=== PATIENT | female | born 1975 | race Caucasian/White ===

== ENCOUNTER 2020-03-20 09:22 | Day surgery (SDC) | payer OTHER ==
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
[2020-03-20] MEDS ORDERED: Levofloxacin 500MG/100ML D5W IV ONE (09:23)
[2020-03-20] MEDS ORDERED: Lactated Ringers 1,000 ML IV ONE (09:42)
[2020-03-20] MEDS ORDERED: Lactated Ringers 1,000 ML IV SCH (10:00)
[2020-03-20] MEDS ORDERED: Xylocaine-Mpf 2% 5 Ml Vial ONE (11:31)
[2020-03-20] MEDS ORDERED: SUBLIMAZE 100 MCG/2 ML ONE (11:31)
[2020-03-20] MEDS ORDERED: DIPRIVAN 200 MG/20 ML IV ONE (11:31)
[2020-03-20] MEDS ORDERED: Quelicin Fliptop 200 MG/10 ML ONE (11:31)
[2020-03-20] MEDS ORDERED: Versed 2 MG/2 ML Injection ONE (11:31)
[2020-03-20] MEDS ORDERED: BRIDION 200MG/2ML IV ONE (12:04)
--- NOTE | 2020-03-20 12:38 | XRAY ---
Indication: Post-bronchoscopy. Comparison: None Portable chest inflated and clear. Heart and mediastinal structures within normal limits. Bony thorax intact. Impression: Nonacute chest.
[2020-03-20 13:36] VITALS: O2SAT 98
[2020-03-20 13:41] VITALS: BP 132/76; PULSE 79
--- NOTE | 2020-03-21 10:36 | XRAY ---
Indication: Bronchoscopy. Intraoperative fluoroscopy was provided for 5 seconds. 2 digital spot images submitted for interpretation and demonstrates bronchoscopy tip in the right middle and right lower lobe bronchi. Correlate with intraoperative findings and report.
--- NOTE | 2020-03-22 14:55 | OP ---
SURGERY DATE/TIME: 03/20/2020 1134 NOTE: This was dictated on the day of the procedure when I dictated all my other operative notes, the other five or six procedures that day. Apparently for some reason activity coordinator said this report was blank so this is a redictation. PREOPERATIVE DIAGNOSIS: Enlarged hilar mass or adenopathy, family history of lung cancer, need for flexible bronchoscopy for further evaluation. POSTOPERATIVE DIAGNOSIS: Fairly normal appearing mucosa trachea, left and right main stem and segmental bronchi. PROCEDURES: 1) Flexible bronchoscopy with left lung bronchial brushings. 2) Left lung bronchial washings. 3) Right lower lobe bronchial brushings. 4) Right lower lobe bronchial washings. 5) Right upper and middle lobe bronchial brushings. 6) Right upper and middle lobe bronchial washings. 7) Procedure with C-arm fluoroscopy confirming location of right lung segment that is in question on CT scan. SURGEON: Dr. Hamzah Sharpe. ANESTHESIA: General. ESTIMATED BLOOD LOSS: Minimal. INDICATIONS: As noted above. Risks and benefits explained in detail and not limited to and consent obtained. DESCRIPTION OF PROCEDURE AND FINDINGS: The patient is taken to the operating room. General anesthesia induced. After official time out and no disagreement with planned procedure, video flexible bronchoscope easily passed down. The trachea is grossly unremarkable. First going down the left lung stem bronchi unremarkable as well as segmental upper lobe lingular segments in lower lobe. Brushings and washings were done and passed off. There were no gross visible mucosal abnormalities. No gross extrinsic compression noted. Scope pulled back up to the hiram and then passed down the right lower lobe confirmed with C-arm fluoroscopy with bronchial brushings. Again, no obvious gross mucosal lesions or extraluminal compression noted. Fairly unremarkable bronchial brushings were taken given her issues of adenopathy or mass noted on the CT scan. Bronchial brushings were taken in the right lower lobe followed by washings and passed off for cytology and culture. The scope then redirected up and identified the right middle lobe and upper lobe segments with C-arm fluoroscopy. Again, bronchial brushings and washings were repeated and sent. There was no evidence of any visible extraluminal compression or endoluminal lesions noted. Good hemostasis noted. The patient had a little bit of coughing during the procedure but otherwise tolerated the procedure fairly well. Please see the anesthesia notes for details. At this point good hemostasis noted. The flexible bronchoscope was removed. Brushings and washings were sent for cytology and culture. Postoperative chest x-ray revealed no evidence of pneumothorax. She is doing well. She is to be discharged home in good condition to follow up in the office the following week.
--- NOTE | 2020-03-23 10:29 | XRAY ---
5 seconds fluoroscopy time in surgery for bronchoscopy.
== END 2020-03-20 13:25 | disposition home or self-care (01) ==
LOC: SDC 09:22 → EDSTATUS 15:26
PROVIDERS: ATTEND Surgery
DX: R91.8 Other nonspecific abnormal finding of lung field (principal); Z80.1 Family history of malignant neoplasm of trachea, bronchus and lung; Z87.891 Personal history of nicotine dependence
CPT/HCPCS: 71045; 76000; J0330; J1956; J2250; J2704; J3010